=== PATIENT | male | born 1985 | race Caucasian/White ===

== ENCOUNTER 2017-02-24 15:32 | Emergency (ER) | payer SELFPAY ==
[2017-02-24 16:54] LABS: Basophils % (Auto) 0.9 % (0.0-1.8); Eosinophils % (Auto) 1.5 % (0.0-4.3); Hematocrit 44.7 % (35.5-45.6); Hemoglobin 14.7 gm/dl (11.8-15.2); Mean Corpuscular HGB Conc 33 % (32-34); Mean Corpuscular Hemoglobin 28 pg (28-32); Mean Corpuscular Volume 85 fl (84-94); Platelet Count 212 K/mm3 (140-440); Red Blood Count 5.27 M/mm3 (3.65-5.03); Red Cell Distribution Width 14.1 % (13.2-15.2); White Blood Count 6.2 K/mm3 (4.5-11.0)
[2017-02-24 16:55] LABS: Anion Gap 17 mmol/L; BUN/Creatinine Ratio 4.44; Blood Urea Nitrogen 4 mg/dL (9-20); Carbon Dioxide 27 mmol/L (22-30); Chloride 99.6 mmol/L (98-107); Glucose 113 mg/dL (75-100); Potassium 3.8 mmol/L (3.6-5.0); Sodium 140 mmol/L (137-145)
--- NOTE | 2017-02-24 17:01 | XRay Report ---
ROUTINE CHEST, TWO VIEWS: SOB. PA and lateral views demonstrate the heart and mediastinal contour to be of normal size and shape. The lungs are clear and fully expanded and the soft tissues and bony structures are normal. IMPRESSION: Normal study.
[2017-02-25] MEDS ORDERED: PROTONIX IV ONE (02:58)
[2017-02-25] MEDS ORDERED: MORPHINE IV ONE (02:58)
[2017-02-25] MEDS ORDERED: ZOFRAN IV ONE (02:58)
[2017-02-25] MEDS ORDERED: D5NS 1,000 ML IV SCH (03:00)
[2017-02-25 04:23] LABS: Alanine Aminotransferase 14 units/L (7-56); Albumin 3.7 g/dL (3.9-5); Albumin/Globulin Ratio 1.7 %; Alkaline Phosphatase 64 units/L (35-129); Bilirubin,Direct < 0.2 mg/dL (0-0.2); Bilirubin,Indirect 0.1 mg/dL; Lipase 31 units/L (13-60); Total Protein 5.9 g/dL (6.3-8.2)
[2017-02-25] MEDS ORDERED: LIDOCAINE VISCOUS 2% PO ONE (04:33)
[2017-02-25] MEDS ORDERED: ALUM-MAG HYDROX-SIMETH 200-200-20MG/5ML PO ONE (04:33)
[2017-02-25 04:34] LABS: Bilirubin,Urine NEG (Negative); Blood,Urine NEG (Negative); Ketones,Urine NEG (Negative); Leukocyte Esterase,Urine TR (Negative); Mucus,Urine FEW /HPF; Nitrite,Urine NEG (Negative); Protein,Urine <15 mg/dL mg/dL (Negative); Urobilinogen,Urine < 2.0 mg/dL (<2.0)
[2017-02-25 05:00] VITALS: BP 112/75
--- NOTE | 2017-02-25 05:08 | Emergency Department Report ---
ED Abdominal Pain HPI - General Chief Complaint: Dizziness Stated Complaint: VOMITING/STOMACH PAIN Time Seen by Provider: 02/25/17 02:51 Source: patient Mode of arrival: Ambulatory Limitations: No Limitations - History of Present Illness Initial Comments: 31-year-old male with a past medical history of acid reflux diagnosed via endoscopy as a child presents to the hospital with complaints of nausea, vomiting, abdominal pain 3-4 days. Pain is in the epigastric area described as a tightness and radiates to the chest. Patient had one episode of bloody emesis after repeated bouts of vomiting but has vomited since without blood. He denies fever, recent travel, sick contacts, diarrhea, melena, or hematochezia. Severity scale (0 -10): 8 - Related Data Previous Rx's Medication Instructions Recorded Last Taken Type HYDROcodone/APAP 5-325 [[place] 1 each PO Q6HR PRN #20 tablet 02/25/17 Unknown Rx 5/325] Omeprazole Magnesium [PriLOSEC Otc] 20 mg PO QDAY #30 tablet. 02/25/17 Unknown Rx Ondansetron [Zofran Odt] 4 mg PO Q8HR PRN #20 tab.rapdis 02/25/17 Unknown Rx Allergies Allergy/AdvReac Type Severity Reaction Status Date / Time Penicillins Allergy Itching Verified 02/24/17 15:44 Sulfa (Sulfonamide Allergy Itching Verified 02/24/17 15:44 Antibiotics) ED Review of Systems ROS: Stated complaint: VOMITING/STOMACH PAIN Other details as noted in HPI Comment: All other systems reviewed and negative Other: Constitutional: No fevers chills Eyes: No eye pain visual changes ENT: No ear pain or throat pain Neck: Denies pain Respiratory: Denies cough wheezing shortness of breath Cardiovascular: Denies chest pain, palpitations, syncope GI: As per HPI : Denies dysuria Musculoskeletal: Denies back pain Skin: Denies rash, lesions, erythema Neurologic: Denies headache, numbness, weakness Psychiatric: Denies suicidal ideation, hallucinations ED Past Medical Hx - Past Medical History Previous Medical History?: Yes Additional medical history: acid reflux - Surgical History Past Surgical History?: Yes Additional Surgical History: ear tubes - Social History Smoking Status: Current Every Day Smoker Substance Use Type: Alcohol - Medications Home Medications: Home Medications Medication Instructions Recorded Confirmed Last Taken Type HYDROcodone/APAP 5-325 [[place] 1 each PO Q6HR PRN #20 tablet 02/25/17 Unknown Rx 5/325] Omeprazole Magnesium [PriLOSEC Otc] 20 mg PO QDAY #30 tablet. 02/25/17 Unknown Rx Ondansetron [Zofran Odt] 4 mg PO Q8HR PRN #20 tab.rapdis 02/25/17 Unknown Rx ED Physical Exam - General Limitations: No Limitations - Other Other exam information: General: No limitations, patient is alert in no acute distress Head exam: Atraumatic, normocephalic Eyes exam: Normal appearance, pupils equal reactive to light, extraocular movements intact ENT: Moist mucous membrane, normal oropharynx Neck exam: Normal inspection, full range of motion, no meningismus nontender Respiratory exam: Clear to auscultation bilateral, no wheezes, rales, crackles Cardiovascular: Normal rate and rhythm, normal heart sounds Abdomen: Soft, nondistended, mild epigastric tenderness, with normal bowel sounds, no rebound, or guarding Extremity: Full range of motion normal inspection no deformity Back: Normal Inspection, full range of motion, no tenderness Neurologic: Alert, oriented x3, cranial nerves intact, no motor or sensory deficit Psychiatric: normal affect, normal mood Skin: Warm, dry, intact ED Course Vital Signs 02/24/17 02/25/17 02/25/17 15:45 00:35 01:17 Temperature 98.2 F 98.5 F Pulse Rate 67 52 L 59 L Respiratory 16 18 18 Rate Blood Pressure 133/88 134/88 Blood Pressure 100/65 [Left] O2 Sat by Pulse 100 100 98 Oximetry 02/25/17 02/25/17 02/25/17 03:18 03:20 03:31 Temperature Pulse Rate Respiratory Rate Blood Pressure 109/68 109/68 Blood Pressure [Left] O2 Sat by Pulse 100 100 100 Oximetry 02/25/17 02/25/17 02/25/17 03:41 03:51 04:00 Temperature Pulse Rate Respiratory Rate Blood Pressure 112/75 109/68 104/71 Blood Pressure [Left] O2 Sat by Pulse 100 100 100 Oximetry 02/25/17 02/25/17 02/25/17 04:11 04:21 04:31 Temperature Pulse Rate Respiratory Rate Blood Pressure 104/71 112/75 112/75 Blood Pressure [Left] O2 Sat by Pulse 100 97 100 Oximetry 02/25/17 02/25/17 04:41 04:51 Temperature Pulse Rate Respiratory Rate Blood Pressure 112/75 112/75 Blood Pressure [Left] O2 Sat by Pulse 100 100 Oximetry - Reevaluation(s) Reevaluation #1: 02/25/17 05:04 Patient received morphine, Zofran, Pepcid and continued to have pain from his epigastric area to his chest. This was relieved after receiving this with lidocaine. Patient declined Maalox stating that it causes him to vomit. Patient received 1 liter D5NS for dehydration. ED Medical Decision Making - Lab Data Result diagrams: 02/24/17 16:05 02/24/17 16:05 Lab Results 02/24/17 02/24/17 02/25/17 Range/Units 16:05 16:05 03:05 WBC 6.2 (4.5-11.0) K/mm3 RBC 5.27 H (3.65-5.03) M/mm3 Hgb 14.7 (11.8-15.2) gm/dl Hct 44.7 (35.5-45.6) % MCV 85 (84-94) fl MCH 28 (28-32) pg MCHC 33 (32-34) % RDW 14.1 (13.2-15.2) % Plt Count 212 (140-440) K/mm3 Lymph % (Auto) 29.4 (13.4-35.0) % King % (Auto) 5.8 (0.0-7.3) % Eos % (Auto) 1.5 (0.0-4.3) % Baso % (Auto) 0.9 (0.0-1.8) % Lymph # 1.8 (1.2-5.4) K/mm3 King # 0.4 (0.0-0.8) K/mm3 Eos # 0.1 (0.0-0.4) K/mm3 Baso # 0.1 (0.0-0.1) K/mm3 Seg Neutrophils % 62.4 (40.0-70.0) % Seg Neutrophils # 3.8 (1.8-7.7) K/mm3 Sodium 140 (137-145) mmol/L Potassium 3.8 (3.6-5.0) mmol/L Chloride 99.6 (98-107) mmol/L Carbon Dioxide 27 (22-30) mmol/L Anion Gap 17 mmol/L BUN 4 L (9-20) mg/dL Creatinine 0.9 (0.8-1.5) mg/dL Estimated GFR > 60 ml/min BUN/Creatinine Ratio 4.44 % Glucose 113 H (75-100) mg/dL Calcium 9.0 (8.4-10.2) mg/dL Total Bilirubin 0.30 (0.1-1.2) mg/dL Direct Bilirubin < 0.2 (0-0.2) mg/dL Indirect Bilirubin 0.1 mg/dL AST 17 (5-40) units/L ALT 14 (7-56) units/L Alkaline Phosphatase 64 (35-129) units/L Troponin T < 0.010 (0.00-0.029) ng/mL Total Protein 5.9 L (6.3-8.2) g/dL Albumin 3.7 L (3.9-5) g/dL Albumin/Globulin Ratio 1.7 % Lipase 31 (13-60) units/L Urine Color (Yellow) Urine Turbidity (Clear) Urine pH (5.0-7.0) Ur Specific [place] (1.003-1.030) Urine Protein (Negative) mg/dL Urine Glucose (UA) (Negative) mg/dL Urine Ketones (Negative) mg/dL Urine Blood (Negative) Urine Nitrite (Negative) Urine Bilirubin (Negative) Urine Urobilinogen (<2.0) mg/dL Ur Leukocyte Esterase (Negative) Urine WBC (Auto) (0.0-6.0) /HPF Urine RBC (Auto) (0.0-6.0) /HPF U Epithel Cells (Auto) (0-13.0) /HPF Urine Mucus /HPF //17 Range/Units 03:51 WBC (4.5-11.0) K/mm3 RBC (3.65-5.03) M/mm3 Hgb (11.8-15.2) gm/dl Hct (35.5-45.6) % MCV (84-94) fl MCH (28-32) pg MCHC (32-34) % RDW (13.2-15.2) % Plt Count (140-440) K/mm3 Lymph % (Auto) (13.4-35.0) % King % (Auto) (0.0-7.3) % Eos % (Auto) (0.0-4.3) % Baso % (Auto) (0.0-1.8) % Lymph # (1.2-5.4) K/mm3 King # (0.0-0.8) K/mm3 Eos # (0.0-0.4) K/mm3 Baso # (0.0-0.1) K/mm3 Seg Neutrophils % (40.0-70.0) % Seg Neutrophils # (1.8-7.7) K/mm3 Sodium (137-145) mmol/L Potassium (3.6-5.0) mmol/L Chloride (98-107) mmol/L Carbon Dioxide (22-30) mmol/L Anion Gap mmol/L BUN (9-20) mg/dL Creatinine (0.8-1.5) mg/dL Estimated GFR ml/min BUN/Creatinine Ratio % Glucose (75-100) mg/dL Calcium (8.4-10.2) mg/dL Total Bilirubin (0.1-1.2) mg/dL Direct Bilirubin (0-0.2) mg/dL Indirect Bilirubin mg/dL AST (5-40) units/L ALT (7-56) units/L Alkaline Phosphatase (35-129) units/L Troponin T (0.00-0.029) ng/mL Total Protein (6.3-8.2) g/dL Albumin (3.9-5) g/dL Albumin/Globulin Ratio % Lipase (13-60) units/L Urine Color Yellow (Yellow) Urine Turbidity Clear (Clear) Urine pH 6.0 (5.0-7.0) Ur Specific [place] 1.006 (1.003-1.030) Urine Protein <15 mg/dl (Negative) mg/dL Urine Glucose (UA) Neg (Negative) mg/dL Urine Ketones Neg (Negative) mg/dL Urine Blood Neg (Negative) Urine Nitrite Neg (Negative) Urine Bilirubin Neg (Negative) Urine Urobilinogen < 2.0 (<2.0) mg/dL Ur Leukocyte Esterase Tr (Negative) Urine WBC (Auto) 5.0 (0.0-6.0) /HPF Urine RBC (Auto) 3.0 (0.0-6.0) /HPF U Epithel Cells (Auto) < 1.0 (0-13.0) /HPF Urine Mucus Few /HPF - EKG Data -: EKG Interpreted by Me (sinus jaida 55 in rbb) - EKG Data When compared to previous EKG there are: previous EKG unavailable - Radiology Data Radiology results: report reviewed (chest x-ray: No acute findings) - Medical Decision Making Patient has improvement in the ED. Tolerating by mouth intake. No further vomiting. Will be discharged home since about treatment of gastritis with associated esophagitis. PMD and GI follow-up be encouraged. - Differential Diagnosis GERD, pancreatitis, hepatitis, gastritis, Gerri-Topete, esophagitis Critical Care Time: No Critical care attestation.: If time is entered above; I have spent that time in minutes in the direct care of this critically ill patient, excluding procedure time. ED Disposition Clinical Impression: Gastritis, Vomiting, GERD (gastroesophageal reflux disease) Disposition: DISCHARGED TO HOME OR SELFCARE Is pt being admited?: No Does the pt Need Aspirin: No Condition: Stable Instructions: Gastritis (ED), Acute Nausea and Vomiting (ED), Gastroesophageal Reflux Disease (ED) Additional Instructions: Take the medication as prescribed. Return if symptoms worsen. Prescriptions: HYDROcodone/APAP 5-325 [[place] 5/325] 1 each PO Q6HR PRN #20 tablet PRN Reason: Pain Omeprazole Magnesium [PriLOSEC Otc] 20 mg PO QDAY #30 tablet. Ondansetron [Zofran Odt] 4 mg PO Q8HR PRN #20 tab.rapdis PRN Reason: Nausea And Vomiting Referrals: [facility] [Provider Group] - 3-5 Days GEOVANNY THOMSON MD [Staff Physician] - 3-5 Days (GI doctor) Forms: Work/School Release Form(ED) Time of Disposition: 05:13
== END 2017-02-25 05:30 | disposition home or self-care (01) ==
LOC: ED 15:32
DX: K29.70 Gastritis, unspecified, without bleeding (principal); K21.9 Gastro-esophageal reflux disease without esophagitis; R11.2 Nausea with vomiting, unspecified; Z88.0 Allergy status to penicillin; Z88.2 Allergy status to sulfonamides; F17.200 Nicotine dependence, unspecified, uncomplicated
CPT/HCPCS: 36415; 71020; 80048; 80074; 81001; 83690; 84484; 85025; 87086; 93005; 93010; 96361; 96374; 96375; 99284; C9113; J2270; J2405; J7042